=== PATIENT | female | born 1995 | race Two or more races ===

== ENCOUNTER 2020-06-06 07:13 | Outpatient (CLI) | payer OTHER | END 2020-06-06 07:26 | disposition home or self-care (01) | LOC: LAB 07:13 | DX: D64.89 Other specified anemias (principal); R53.1 Weakness ==

== ENCOUNTER 2020-06-11 10:48 | Outpatient (CLI) | payer OTHER | END 2020-06-11 18:00 | disposition home or self-care (01) | LOC: PPH VACUNA 10:48 | DX: Z23 Encounter for immunization (principal) ==

== ENCOUNTER 2020-06-27 08:26 | Emergency (ER) | payer OTHER ==
[~2020-06-27] VITALS: Ht 160 cm; Wt 63.5 kg
[2020-06-27] MEDS ORDERED: VITAMIN C WIT1000 MG PO (10:05)
== END 2020-06-27 10:33 | disposition home or self-care (01) ==
LOC: ER 08:26
DX: J02.8 Acute pharyngitis due to other specified organisms (principal); Z03.818 Encounter for observation for suspected exposure to other biological agents ruled out